=== PATIENT | male | born 1955 | race Hispanic/Latino ===

== ENCOUNTER 2018-10-16 21:38 | Emergency (ER) | payer MEDICARE, OTHER ==
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
[2018-10-16] MEDS ORDERED: IBUPROFEN PO ONE (21:50)
[2018-10-16 21:52] VITALS: BP 124/73
[2018-10-16] MEDS ORDERED: TRIPLE ANTIBIOTIC TP ONE (22:11)
[2018-10-16] MEDS ORDERED: FLEXERIL PO ONE (22:12)
--- NOTE | 2018-10-16 22:36 | Emergency Department Report ---
ED Neck Pain/Injury HPI - General Chief Complaint: Neck Pain/Injury Stated Complaint: NECK PAIN/LEFT HAND CAN MOVE Time Seen by Provider: 10/16/18 21:42 Mode of arrival: Ambulatory Limitations: No Limitations - History of Present Illness Initial Comments: Patient is a 63-year-old male who presents to the emergency room with complaints of left-sided neck pain that began 2 nights ago. He states 2 nights ago he was sleeping and turned over onto his left side and felt a popping sensation. He states he had difficulty moving the arm and tingling sensation in the arm 2 nights ago. He has no difficulty moving the arm currently. He denies any numbness or weakness currently. he states he feels like the left side of the neck is having spasms. He denies any previous neck injury. He states he also has an abrasion to the back for the last few days. He does not report any other symptoms or pain. 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 - Related Data Previous Rx's Medication Instructions Recorded Last Taken Type Cyclobenzaprine [Flexeril] 10 mg PO QHS PRN #10 tablet 10/17/18 Unknown Rx Ibuprofen [Motrin 800 MG tab] 800 mg PO Q8HR PRN #14 tablet 10/17/18 Unknown Rx Neomycin/Bacitracin/Polymyxinb 1 applicatio TP BID #1 oint...g. 10/17/18 Unknown Rx [Triple Antibiotic Ointment] Allergies Allergy/AdvReac Type Severity Reaction Status Date / Time adhesive tape Allergy Itching Verified 10/16/18 21:42 Latex, Natural Rubber Allergy Itching Verified 10/16/18 21:42 ED Review of Systems ROS: Stated complaint: NECK PAIN/LEFT HAND CAN MOVE Other details as noted in HPI Comment: All other systems reviewed and negative ED Past Medical Hx - Past Medical History Hx Kidney Stones: Yes Additional medical history: SVT - Surgical History Past Surgical History?: Yes Hx Pacemaker: Yes Additional Surgical History: L4-S1 spinal s/p - Social History Smoking Status: Current Every Day Smoker Substance Use Type: None - Medications Home Medications: Home Medications Medication Instructions Recorded Confirmed Last Taken Type Cyclobenzaprine [Flexeril] 10 mg PO QHS PRN #10 tablet 10/17/18 Unknown Rx Ibuprofen [Motrin 800 MG tab] 800 mg PO Q8HR PRN #14 tablet 10/17/18 Unknown Rx Neomycin/Bacitracin/Polymyxinb 1 applicatio TP BID #1 oint...g. 10/17/18 Unk nown Rx [Triple Antibiotic Ointment] ED Physical Exam - General Limitations: No Limitations General appearance: alert, in no apparent distress - Head Head exam: Present: atraumatic, normocephalic - Eye Eye exam: Present: normal appearance, PERRL - ENT ENT exam: Present: normal orophraynx, mucous membranes moist, other (airway is patent) - Neck Neck exam: Present: normal inspection, tenderness (left paraspinal C-spine tenderness to palpation, no midline C-spine tenderness, no step offs, no deformities), full ROM - Respiratory Respiratory exam: Present: normal lung sounds bilaterally. Absent: respiratory distress, wheezes, rales, rhonchi, stridor, chest wall tenderness, accessory muscle use, decreased breath sounds, prolonged expiratory - Cardiovascular Cardiovascular Exam: Present: regular rate, normal rhythm, normal heart sounds. Absent: systolic murmur, diastolic murmur, rubs, gallop - Neurological Exam Neurological exam: Present: alert, oriented X3, CN II-XII intact, normal gait, other (equal vamp stitcher strength, 5/5 strength in the BUE/BLE, sensation intact, no focal neuro deficit). Absent: motor sensory deficit - Psychiatric Psychiatric exam: Present: normal affect, normal mood - Skin Skin exam: Present: warm, dry, other (4 cm healing abrasion to the left middle back which is clean, dry, intact, no signs of infection) ED Course Vital Signs 10/16/18 10/16/18 10/17/18 21:45 21:54 02:19 Temperature 97.6 F Pulse Rate 80 63 Respiratory 20 16 Rate Blood Pressure 124/73 O2 Sat by Pulse 96 99 Oximetry ED Medical Decision Making - Radiology Data Radiology results: report reviewed CT cervical spine wo con INDICATION / CLINICAL INFORMATION: left sided neck pain, tingling left hand. TECHNIQUE: Axial CT imaging of the cervical spine was obtained without contrast. Coronal and sagittal reformatted imaging obtained and reviewed. All CT scans at this location are performed using CT dose reduction for ALARA by means of automated exposure control. COMPARISON: None available. FINDINGS: There is mild multilevel degenerative disc disease. This is most severe at C5- C6. There is prominent posterior osteophytes at C5-C6 causing left neural foraminal narrowing. there is also central disc bulge at this level. Incidental finding of a large cystic mass in the right superior mediastinum measuring approximately 6 cm in greatest diameter. I suspect this is extending from the inferior pole of the right thyroid lobe. there is mass effect on the trachea with the trachea deviated to the left. The mass is water density and more than likely a large thyroid cyst. IMPRESSION: 1. Degenerative disc disease with spondylitic change at C5-C6 with narrowing of the left neuroforamen. 2. Mild multilevel degenerative disc disease with diffuse spondylytic change. Prominent facet degenerative changes, especially at C3-C4 on the left. 3. Large cystic mass in the right lower neck/superior mediastinum. This appears to be a large cyst extending from the inferior pole of the right thyroid lobe. There is mild mass effect on the trachea Signer Name: Vangie Anderson MD Signed: 10/17/2018 12:45 AM Workstation Name: [id number] Transcribed By: Dictated By: Vangie Anderson MD Electronically Authenticated By: Vangie Anderson MD Signed Date/Time: 10/17/18 0045 - Medical Decision Making Patient is a 63-year-old male who presents to the emergency room with complaints of left-sided neck pain that began 2 nights ago. He states 2 nights ago he was sleeping and turned over onto his left side and felt a popping sensation. He states he had difficulty moving the arm and tingling sensation in the arm 2 nights ago. He has no difficulty moving the arm currently. He denies any numbness or weakness currently. he states he feels like the left side of the neck is having spasms. He denies any previous neck injury. He states he also has an abrasion to the back for the last few days. He does not report any other symptoms or pain. 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 vitals are normal. on exam: left paraspinal C-spine tenderness to palpation, no midline C-spine tenderness, no step offs, no deformities, airway is patent, no focal neuro deficit, 4 cm healing abrasion to the left middle back which is clean, dry, intact, no signs of infection. abrasion cleaned with betadine and triple abx ointment placed. CT c-spine shows: 1. Degenerative disc disease with spondylitic change at C5-C6 with narrowing of the left neuroforamen. 2. Mild multilevel degenerative disc disease with diffuse spondylytic change. Prominent facet degenerative changes, especially at C3-C4 on the left. 3. Large cystic mass in the right lower neck/superior mediastinum. This appears to be a large cyst extending from the inferior pole of the right thyroid lobe. There is mild mass effect on the trachea. pt given anti- inflammatory and muscle relaxer in the ED. given prescription for anti-infla mmatory and muscle relaxer. advised pt to please take medication as prescribed as needed. do not drive or operate heavy machinery while taking muscle relaxer. Please keep abrasion clean and dry. may wash with soap and water and immediately dry. no hot tub, pool, bath tub or immersing in water. please put ointment on the abrasion. Follow-up with a primary care doctor in the next 2-3 days. Please follow-up with your doctor who is managing your thyroid mass in the next 2-3 days. Return to the emergency room for any new or worsening symptoms. as discharging pt, pt states that he is homeless and would like to see social work for placement, pt d/c to the ER lobby and advised that social work would be available at 8AM, social work consult placed. - Differential Diagnosis strain, sprain, fx, dislocation Critical care attestation.: If time is entered above; I have spent that time in minutes in the direct care of this critically ill patient, excluding procedure time. ED Disposition Clinical Impression: Neck pain, Cervical radiculopathy, Thyroid mass, Abrasion Disposition: DC-01 TO HOME OR SELFCARE Is pt being admited?: No Does the pt Need Aspirin: No Condition: Stable Instructions: Muscle Strain (ED), Cervical Radiculopathy (ED), Abrasion (ED), Degenerative Disc Disease (ED) Additional Instructions: Please take medication as prescribed as needed. do not drive or operate heavy machinery while taking muscle relaxer. Please keep abrasion clean and dry. may wash with soap and water and immediately dry. no hot tub, pool, bath tub or immersing in water. please put ointment on the abrasion. Follow-up with a primary care doctor in the next 2-3 days. Please follow-up with your doctor who is managing your thyroid mass in the next 2-3 days. Return to the emergency room for any new or worsening symptoms. Prescriptions: Cyclobenzaprine [Flexeril] 10 mg PO QHS PRN #10 tablet PRN Reason: Muscle Spasm Ibuprofen [Motrin 800 MG tab] 800 mg PO Q8HR PRN #14 tablet PRN Reason: Pain, Moderate (4-6) Neomycin/Bacitracin/Polymyxinb [Triple Antibiotic Ointment] 1 applicatio TP BID #1 oint...g. Referrals: [facility] [Outside] - 2-3 Days [facility] [Outside] - 2-3 Days [facility] [Provider Group] - 2-3 Days Time of Disposition: 01:01 Print Language: [place]
--- NOTE | 2018-10-17 00:49 | Cat Scan Report ---
CT cervical spine wo con INDICATION / CLINICAL INFORMATION: left sided neck pain, tingling left hand. TECHNIQUE: Axial CT imaging of the cervical spine was obtained without contrast. Coronal and sagittal reformatte d imaging obtained and reviewed. All CT scans at this location are performed using CT dose reduction for ALARA by means of automated exposure control. COMPARISON: None available. FINDINGS: There is mild multilevel degenerative disc disease. This is most severe at C5-C6. There is prominent posterior osteophytes at C5-C6 causing left neural foraminal narrowing. there is also central disc b ulge at this level. Incidental finding of a large cystic mass in the right superior mediastinum measuring approximately 6 cm in greatest diameter. I suspect this is extending from the inferior pole of the right thyroid lob e. there is mass effect on the trachea with the trachea deviated to the left. The mass is water dens ity and more than likely a large thyroid cyst. IMPRESSION: 1. Degenerative disc disease with spondylitic change at C5-C6 with narrowing of the left neuroforamen . 2. Mild multilevel degenerative disc disease with diffuse spondylytic change. Prominent facet degener ative changes, especially at C3-C4 on the left. 3. Large cystic mass in the right lower neck/superior mediastinum. This appears to be a large cyst ex tending from the inferior pole of the right thyroid lobe. There is mild mass effect on the trachea Signer Name: Vangie Anderson MD Signed: 10/17/2018 12:45 AM Workstation Name: [id number]
== END 2018-10-17 01:20 | disposition home or self-care (01) ==
LOC: ED 21:38
DX: S20.412A Abrasion of left back wall of thorax, initial encounter (principal); M54.12 Radiculopathy, cervical region; E07.9 Disorder of thyroid, unspecified; F17.200 Nicotine dependence, unspecified, uncomplicated; Z87.442 Personal history of urinary calculi; Z91.048 Other nonmedicinal substance allergy status; Z91.040 Latex allergy status; X58.XXXA Exposure to other specified factors, initial encounter; Y93.89 Activity, other specified; Y92.89 Other specified places as the place of occurrence of the external cause; Y99.8 Other external cause status
CPT/HCPCS: 72125; A6250